=== PATIENT | male | born 1995 | race Caucasian/White ===

== ENCOUNTER 2020-02-23 13:03 | Emergency (ER) | payer OTHER ==
[~2020-02-23] VITALS: Ht 180.3 cm; Wt 71.2 kg
[2020-02-23 13:05] VITALS: BP 128/86
[2020-02-23] MEDS ORDERED: AUGMENTIN 875-1 EACH PO (14:04)
== END 2020-02-23 15:14 | disposition home or self-care (01) ==
LOC: ER 13:03
DX: S61.411A Laceration without foreign body of right hand, initial encounter (principal); S61.451A Open bite of right hand, initial encounter; Z20.828 Contact with and (suspected) exposure to other viral communicable diseases; W54.0XXA Bitten by dog, initial encounter; Y93.89 Activity, other specified; Y92.89 Other specified places as the place of occurrence of the external cause; Y99.8 Other external cause status